=== PATIENT | female | born 1950 | race Caucasian/White ===

== ENCOUNTER → 2017-07-01 | Outpatient (CLI) | payer MEDICARE ==
[~2017-07-01] MED LIST: CALC200T3 PO; CEPH-368 PO; OMNIPAQUE 350 MG/ML, 100ML BOTTLE ONE; OXYC-302 PO; WARF3TAB PO; WARF7.5T6 PO; [UNRECOGNIZED DRUG - CODE] SC
== END | disposition home or self-care (01) ==
LOC: CFH 09:21
PROVIDERS: ATTEND Specialist
DX: C54.9 Malignant neoplasm of corpus uteri, unspecified (principal); R59.0 Localized enlarged lymph nodes; N28.1 Cyst of kidney, acquired; K86.89 Other specified diseases of pancreas; M89.8X8 Other specified disorders of bone, other site
CPT/HCPCS: 74177; Q9967